=== PATIENT | male | born 1975 | race American Indian/Alaskan Native ===

== ENCOUNTER 2021-08-22 16:37 | Emergency (ER) | payer SELFPAY ==
--- NOTE | 2021-08-22 17:51 | Emergency Department Report ---
ED Neck Pain/Injury HPI - General Chief Complaint: Neck Pain/Injury Stated Complaint: NECK AND SHOULDER PAIN Time Seen by Provider: 08/22/21 17:38 Mode of arrival: Ambulatory Limitations: No Limitations - History of Present Illness Initial Comments: Patient presents secondary to neck pain. He woke up with right lateral neck pain a day or 2 ago. Pain is been persistent. He has no injury. There is no cough congestion. No vomiting or diarrhea. Pain is starting to extend down to the right shoulder and down into the right scapular area. He has no weakness in the arm or leg. He states that he has some mild burning or tingling in the trapezius area on the right as well. Is never had pain like this before. He has no fevers or chills. There is pain with range of motion of the neck. He has no pain with range of motion of the right arm. - Related Data Previous Rx's Medication Instructions Recorded Last Taken Type Ibuprofen [Motrin] 600 mg PO Q8H PRN #20 tablet 08/22/21 Unknown Rx Metaxalone [Skelaxin] 800 mg PO TID #9 tablet 08/22/21 Unknown Rx Allergies Allergy/AdvReac Type Severity Reaction Status Date / Time shellfish derived AdvReac Hives Verified 08/22/21 17:30 ED Review of Systems ROS: Stated complaint: NECK AND SHOULDER PAIN Other details as noted in HPI Comment: All other systems reviewed and negative Constitutional: denies: fever Eyes: denies: eye pain ENT: denies: ear pain Respiratory: denies: cough Cardiovascular: denies: chest pain Endocrine: denies: unexplained weight loss Gastrointestinal: denies: abdominal pain Musculoskeletal: as per HPI Skin: denies: rash Neurological: denies: headache, numbness, paresthesias ED Past Medical Hx - Past Medical History Previous Medical History?: No - Family History Family history: no significant - Medications Home Medications: Home Medications Medication Instructions Recorded Confirmed Last Taken Type Ibuprofen [Motrin] 600 mg PO Q8H PRN #20 tablet 08/22/21 Unknown Rx Metaxalone [Skelaxin] 800 mg PO TID #9 tablet 08/22/21 Unknown Rx ED Physical Exam - General Limitations: No Limitations, Other ( Pulse ox noted and normal. Is not hypoxic.) General appearance: alert, in no apparent distress - Head Head exam: Present: atraumatic, normocephalic, normal inspection - Eye Eye exam: Present: normal appearance, EOMI. Absent: scleral icterus - ENT ENT exam: Present: normal exam, normal external ear exam - Neck Neck exam: Present: normal inspection, tenderness ( Right trapezius with spasm). Absent: meningismus - Respiratory Respiratory exam: Present: normal lung sounds bilaterally. Absent: respiratory distress - Cardiovascular Cardiovascular Exam: Present: regular rate, normal rhythm - GI/Abdominal GI/Abdominal exam: Present: soft - Extremities Exam Extremities exam: Present: normal capillary refill, other. Absent: calf tenderness - Back Exam Back exam: Absent: CVA tenderness (R), CVA tenderness (L) - Neurological Exam Neurological exam: Present: alert, oriented X3, CN II-XII intact, normal gait. Absent: motor sensory deficit - Psychiatric Psychiatric exam: Present: normal affect, normal mood - Skin Skin exam: Present: warm, dry ED Course - Reevaluation(s) Reevaluation #1: 08/22/21 17:48 patient was discharged ED Medical Decision Making - Medical Decision Making patient presents with right neck pain. He has evidence of trapezius pain and spasm. There is no trauma that would suggest injury. He certainly has no midline tenderness or step-off. I am not concerned for spinal fracture. There is no neurologic symptom or deficit. He has no weakness. There is no myelopathy. I am not concerned for cervical radiculopathy. He was treated symptomatically and referred for outpatient evaluation. Symptoms are not exerti onal. Critical Care Time: No Critical care attestation.: If time is entered above; I have spent that time in minutes in the direct care of this critically ill patient, excluding procedure time. ED Disposition Clinical Impression: Trapezius muscle spasm Disposition: 01 HOME / SELF CARE / HOMELESS Is pt being admited?: No Condition: Stable Instructions: Muscle Cramps and Spasms Additional Instructions: Alternate ice and heat. Return for problems. Do not drive while taking muscle relaxants. Follow-up with a regular doctor for recheck. Prescriptions: Ibuprofen [Motrin] 600 mg PO Q8H PRN #20 tablet PRN Reason: Pain Metaxalone [Skelaxin] 800 mg PO TID #9 tablet Referrals: PRIMARY CAREMD [Referring] - 3-5 Days HUMBERTO PIMENTEL MD [Staff Physician] - 3-5 Days
== END 2021-08-22 18:56 | disposition home or self-care (01) ==
LOC: ED 16:37
DX: M62.838 Other muscle spasm (principal); M54.2 Cervicalgia; Z91.013 Allergy to seafood; Z79.899 Other long term (current) drug therapy
CPT/HCPCS: 99281

== ENCOUNTER 2022-03-24 15:52 | Emergency (ER) | payer OTHER ==
[2022-03-24] MEDS ORDERED: methylPREDNISolone Sod Succinate 125 MG/2 ML INJ IM ONE (18:41)
[2022-03-24] MEDS ORDERED: FAMOTIDINE 20 MG TAB PO ONE (18:41)
[2022-03-24] MEDS ORDERED: diphenhydrAMINE 25 MG CAP PO ONE (18:41)
--- NOTE | 2022-03-24 18:45 | Emergency Department Report ---
HPI - General Chief Complaint: Allergic Reaction Time Seen by Provider: 03/24/22 18:19 - HPI HPI: 46-year-old black male with no past medical history presents to the emergency department for evaluation of 2-day history of pruritic rash to his bilateral ar ms and legs and chest area. He states that he has not had any changes in any of his products or food. He denies shortness of breath, chest tightness, and dizziness. He denies pain and states that he has not taken any medication for symptoms. ED Past Medical Hx - Past Medical History Previous Medical History?: No - Surgical History Past Surgical History?: No - Medications Home Medications: Home Medications Medication Instructions Recorded Confirmed Last Taken Type Ibuprofen [Motrin] 600 mg PO Q8H PRN #20 tablet 08/22/21 Unknown Rx Metaxalone [Skelaxin] 800 mg PO TID #9 tablet 08/22/21 Unknown Rx Prednisone [predniSONE 10 mg 10 mg PO .TAPER #1 pack 03/24/22 Unknown Rx (6-Day Pack, 21 Tabs)] hydrOXYzine PAMOATE [Vistaril] 25 mg PO Q6HR PRN #21 capsule 03/24/22 Unknown Rx ED Review of Systems ROS: Stated complaint: POSS BODY RASH Other details as noted in HPI Comment: All other systems reviewed and negative Constitutional: denies: chills, fever Eyes: denies: vision change ENT: denies: throat pain, congestion Respiratory: denies: cough, shortness of breath, SOB with exertion, SOB at rest, stridor, wheezing Cardiovascular: denies: chest pain, palpitations, dyspnea on exertion Gastrointestinal: denies: abdominal pain, nausea, vomiting Musculoskeletal: denies: back pain Skin: rash Neurological: denies: headache, weakness Physical Exam - Physical Exam Vital Signs: Vital Signs 03/24/22 16:14 Temperature 98.5 F Pulse Rate 83 Respiratory 18 Rate Blood Pressure 136/78 O2 Sat by Pulse 96 Oximetry ED Course Vital Signs 03/24/22 16:14 Temperature 98.5 F Pulse Rate 83 Respiratory 18 Rate Blood Pressure 136/78 O2 Sat by Pulse 96 Oximetry ED Medical Decision Making - Medical Decision Making 46-year-old black male with no past medical history presents to the emergency department for evaluation of 2-day history of pruritic rash to his bilateral arms and legs and chest area. He states that he has not had any changes in any of his products or food. He denies shortness of breath, chest tightness, and dizziness. He denies pain and states that he has not taken any medication for symptoms. Exam consistent with contact dermatitis. Patient will be treated with steroids antihistamines in the emergency department and at home. He is advised to follow-up with primary care provider if no improvement or worsening symptoms. He is advised to return to the emergency department as needed. He verbalizes understanding of and agreement with plan of care. Critical care attestation.: If time is entered above; I have spent that time in minutes in the direct care of this critically ill patient, excluding procedure time. ED Disposition Clinical Impression: Contact dermatitis Qualifiers: Contact dermatitis type: unspecified Contact dermatitis trigger: unspecified trigger Qualified Code(s): L25.9 - Unspecified contact dermatitis, unspecified cause Disposition: HOME / SELF CARE / HOMELESS Is pt being admited?: No Does the pt Need Aspirin: No Condition: Stable Instructions: Contact Dermatitis, [id number] Additional Instructions: Take medications as prescribed. Follow-up with primary care provider or dermatology for further evaluation and management. Return to the emergency department as needed. Prescriptions: Prednisone [predniSONE 10 mg (6-Day Pack, 21 Tabs)] 10 mg PO .TAPER #1 pack hydrOXYzine PAMOATE [Vistaril] 25 mg PO Q6HR PRN #21 capsule PRN Reason: Itching Referrals: DARIAN GAINES MD [Primary Care Provider] - 3-5 Days AMAURY CULVER MD [Referring] - 3-5 Days Forms: Work/School Release Form(ED) Time of Disposition: 18:45 ED General adult EXAM - General General appearance: alert, in no apparent distress Limitations: No Limitations - Head Head exam: Positive: atraumatic, normocephalic - Eye Eye exam: normal appearance - ENT ENT exam: Positive: normal exam, normal orophraynx, normal external ear exam - Neck Neck exam: Positive: normal inspection, full ROM. Negative: tenderness, meningismus, lymphadenopathy - Respiratory Respiratory exam: Positive: normal lung sounds bilaterally. Negative: respiratory distress, wheezes, rales, rhonchi, stridor, chest wall tenderness - Cardiovascular Cardiovascular Exam: Positive: regular rate, normal heart sounds - GI/Abdominal GI/Abdominal exam: Positive: soft, normal bowel sounds. Negative: distended, tenderness, guarding, rebound, rigid - Extremities Extremities exam: Positive: normal inspection, normal capillary refill. Negative: pedal edema, joint swelling, calf tenderness - Back Back exam: normal inspection. denies: tenderness, CVA tenderness (R), CVA tenderness (L) - Neurological Neurological exam: Positive: alert, oriented X3, normal gait - Psychiatric Psychiatric exam: Positive: normal affect, normal mood - Skin Skin exam: Positive: warm, dry, intact, normal color, rash (Diffuse pruritic macular rash noted to bilateral arms, chest, and thigh areas. No drainage noted. Patient denies pain.)
[2022-03-24 19:43] VITALS: BP 138/82
== END 2022-03-24 20:12 | disposition home or self-care (01) ==
LOC: ED 15:52
DX: L25.9 Unspecified contact dermatitis, unspecified cause (principal)
CPT/HCPCS: 96372; 99282; J2930